=== PATIENT | female | born 1980 | race Two or more races ===

== ENCOUNTER 2020-11-14 06:00 | Day surgery (SDC) | payer OTHER | END 2020-11-14 12:20 | disposition home or self-care (01) | LOC: AMB-ENDOS 06:00 | PROVIDERS: ATTEND Surgery | DX: D13.1 Benign neoplasm of stomach (principal); K44.9 Diaphragmatic hernia without obstruction or gangrene; Z20.822 Contact with and (suspected) exposure to COVID-19 ==

== ENCOUNTER 2022-05-22 14:15 | Outpatient (CLI) | payer OTHER | END 2022-05-22 14:16 | disposition home or self-care (01) | LOC: LAB 14:15 | PROVIDERS: ATTEND Radiology Diagnostic Radiology | DX: R10.2 Pelvic and perineal pain (principal) ==

== ENCOUNTER 2022-05-27 09:03 | Outpatient (CLI) | payer OTHER | END 2022-05-27 09:17 | disposition home or self-care (01) | LOC: TOM 09:03 | PROVIDERS: ATTEND General Practice | DX: R10.2 Pelvic and perineal pain (principal); R10.9 Unspecified abdominal pain ==